=== PATIENT | male | born 1955 | race Caucasian/White ===

== ENCOUNTER 2018-01-12 17:17 | Inpatient (IN) | payer BC ==
[~2018-01-12] VITALS: Ht 170.2 cm; Wt 109.8 kg
--- NOTE | ~2018-01-12 | MORECARE ---
CASE MANAGEMENT DISCHARGE SUMMARY PATIENT: ELMER SOW UNIT: [id number] ADM DATE: 01/12/18 AGE: 62 : 51 SEX: M ROOM/BED: D.2103 AUTHOR: VERONICA MENDEZ PHYSICIAN: REFERRING PHYSICIAN: SETH MCKEON MD DATE OF SERVICE: 01/17/18 Discharge Plan Patient Name: ELMER SOW Facility: [facility]:[place] : 1955 Planned Disposition: Home Anticipated Discharge Date: 01/17/18 Discharge Date: Expected LOS: 5 Initial Reviewer: [email or web address] Initial Review Date: 01/17/2018 Generated: 01/17/18 5:36 pm DCPIA - Discharge Planning Initial Assessment Updated by [email or web address]: Mauricio Yousif on 01/17/18 4:34 pm * Is the patient Alert and Oriented? Yes * How many steps to enter\exit or inside your home? * PCP DR. ZAMAN * Pharmacy [facility] * Preadmission Environment Home with Family * ADLs Independent * Equipment None * Other Equipment NO MEDICAL EQUIPMENT PROVIDER PREFERENCE * List name and contact numbers for known caregivers / representatives who currently or will assist patient after discharge: ENRIQUE MORENO, SPOUSE, * Verbal permission to speak to the caregivers and representatives has been obtained from the patient. Yes * Community resources currently utilized None * Please name any agencies selected above. NONE * Additional services required to return to the preadmission environment? No * Can the patient safely return to the preadmission environment? Yes * Has this patient been hospitalized within the prior 30 days at any hospital? No Last DP export: 01/17/18 3:21 Patient Name: ELMER SOW Page [id number] at 1636 All edits/amendments must be made on the electronic document DICTATION DATE: 01/17/18 163 TALENT SOLUTIONS MANAGER: SONNY 01/17/18 163 RPT#: [id number] DC DATE: STATUS: ADM IN [facility] [address] [place] [address] END OF REPORT
--- NOTE | ~2018-01-12 | MORECARE ---
CASE MANAGEMENT DISCHARGE SUMMARY PATIENT: ELMER SOW UNIT: [id number] ADM DATE: 01/12/18 AGE: 62 : 53 SEX: M ROOM/BED: D.2103 AUTHOR: VERONICA MENDEZ PHYSICIAN: REFERRING PHYSICIAN: SETH MCKEON MD DATE OF SERVICE: 01/17/18 Discharge Plan Patient Name: ELMER SOW [facility] [facility] 1955 Planned Disposition: Home Anticipated Discharge Date: 01/17/18 Discharge Date: Expected LOS: 5 Initial Reviewer: [email or web address] Initial Review Date: 01/17/2018 Generated: 01/17/18 5:21 pm Patient Name: ELMER SOW Page [id number] at 1621 All edits/amendments must be made on the electronic document DICTATION DATE: 01/17/181619 LINE TESTER: SONNY 01/17/18 162 RPT#: [id number] DC DATE: STATUS: ADM IN [facility] [address] [place] [address] END OF REPORT
--- NOTE | ~2018-01-12 | MORECARE ---
CASE MANAGEMENT DISCHARGE SUMMARY PATIENT: ELMER SOW UNIT: [id number] ADM DATE: 01/12/18 AGE: 62 : 51 SEX: M ROOM/BED: D.2103 AUTHOR: ANDREA,DOC PHYSICIAN: REFERRING PHYSICIAN: SETH MCKEON MD DATE OF SERVICE: 01/17/18 Discharge Plan Patient Name: ELMER SOW Facility: [facility]:[place] : 1955 Planned Disposition: Home Anticipated Discharge Date: 01/17/18 Discharge Date: 01/17/2018 Expected LOS: 5 Initial Reviewer: [email or web address] Initial Review Date: 01/17/2018 Generated: 01/17/18 5:44 pm Comments DCP- Discharge Planning Updated by [email or web address]: Mauricio Yousif on 01/17/18 3:[address] Patient Name: ELMER SOW Admission Status: ER Accout number: [id number] Admission Date: 01-12-2018 : 1955 Admission Diagnosis:OTHER SPECIFIED SOFT TISSUE DISORDERS Attending: SETH MCKEON Current LOS: 5 Anticipated DC Date: 01-17-2018 Planned Disposition: Home Primary Insurance: [employer] OUT OF STATE Discharge Planning Comments: * Is the patient Alert and Oriented? Yes 0 * How many steps to enter\\exit or inside your home? 6 0 * PCP DR. ZAMAN 0 * Pharmacy [facility] 0 * Preadmission Environment Home with Family 0 * ADLs Independent 0 * Equipment None 0 * Other Equipment NO MEDICAL EQUIPMENT PROVIDER PREFERENCE 0 * List name and contact numbers for known caregivers / representatives who currently or will assist patient after discharge: ENRIQUE MORENO, SPOUSE, 0 * Verbal permission to speak to the caregivers and representatives has been obtained from the patient. Yes 0 * Community resources currently utilized None 0 * Please name any agencies selected above. NONE 0 * Additional services required to return to the preadmission environment? No 0 * Can the patient safely return to the preadmission environment? Yes 0 * Has this patient been hospitalized within the prior 30 days at any hospital? No 0 CM MET WITH PT AND SPOUSE IN ROOM TO DISCUSS DISCHARGE PLANNING AND NEEDS. ELMER SOW provided verbal consent to discuss current and ongoing needs with/in the presence of: ENRIQUE, SPOUSE. PT REPORTS LIVING AT HOME INDEPENDENTLY WITH SPOUSE. PT HAS NO MEDICAL EQUIPMENT AND NO OUTSIDE SERVICES ASSISTING IN THE HOME. CM DISCUSSED AVAILABILITY OF HOME HEALTH, REHAB SERVICES AND MEDICAL EQUIPMENT. PT DENIES DISCHARGE NEEDS, REPORTS HIS WILL PICK HIM UP FOR DISCHARGE HOME TODAY. 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 WELDER GAS NURSE NOTIFIED. Sec Accountant: Mauricio Yousif DCPIA - Discharge Planning Initial Assessment Updated by [email or web address]: Mauricio Yousif on 01/17/18 4:34 pm * Is the patient Alert and Oriented? Yes * How many steps to enter\\exit or inside your home? * PCP DR. ZAMAN * Pharmacy [facility] * Preadmission Environment Home with Family * ADLs Independent * Equipment None * Other Equipment NO MEDICAL EQUIPMENT PROVIDER PREFERENCE * List name and contact numbers for known caregivers / representatives who currently or will assist patient after discharge: ENRIQUE MORENO, SPOUSE, * Verbal permission to speak to the caregivers and representatives has been obtained from the patient. Yes * Community resources currently utilized None * Please name any agencies selected above. NONE * Additional services required to return to the preadmission environment? No * Can the patient safely return to the preadmission environment? Yes * Has this patient been hospitalized within the prior 30 days at any hospital? No Last DP export: 01/17/18 3:36 Patient Name: ELMER SOW Page [id number] at 1644 All edits/amendments must be made on the electronic document DICTATION DATE: 01/17/181642 PERISHABLE FREIGHT INSPECTOR: SONNY 01/17/181642 RPT#: [id number] PA DATE:01/17/18 STATUS: DIS IN [facility] [address] [place] [address] END OF REPORT
[2018-01-12 18:12] LABS: BASOPHILS 0.2 % (0-2); EOSINOPHILS 2.5 % (0-7); HEMATOCRIT 42.7 % (42.0-54.0); HEMOGLOBIN 14.3 g/dL (13.5-17.5); IMMATURE GRANULOCYTES 0.6 % (0-5); LYMPHOCYTES 22.8 % (15-50); MCH 30.8 pg (26.0-34.0); MCHC 33.5 g/dL (31.0-37.0); MCV 91.8 fL (80.0-100.0); MEAN PLATELET VOLUME 9.4 fL (7.4-10.4); NEUTROPHILS 63.9 % (40-80); PLATELET COUNT 323 10x3/uL (130-400); RBC 4.65 10x6/uL (4.20-6.10); RDW 12.8 % (11.5-14.5); WBC 8.8 10x3/uL (4.8-10.8)
[2018-01-12 18:43] LABS: ALBUMIN 3.1 g/dL (3.4-5.0); ANION GAP 9.8 mmol/L (8-16); BILIRUBIN - TOTAL 0.44 mg/dL (0.2-1.3); CALCIUM 8.8 mg/dL (8.5-10.1); CARBON DIOXIDE 31.1 mmol/L (21.0-32.0); CREATININE - SERUM 1.4 mg/dL (0.6-1.3); POTASSIUM - SERUM 3.9 mmol/L (3.5-5.1); PROTEIN - SERUM 7.5 g/dL (6.4-8.2)
[2018-01-12 20:00] VITALS: BP 130/79
[2018-01-13 00:46] VITALS: BP 119/72
[2018-01-13 04:00] VITALS: BP 109/56
[2018-01-13 06:14] LABS: BASOPHILS 0.3 % (0-2); EOSINOPHILS 2.3 % (0-7); HEMATOCRIT 41.2 % (42.0-54.0); HEMOGLOBIN 13.5 g/dL (13.5-17.5); IMMATURE GRANULOCYTES 0.6 % (0-5); LYMPHOCYTES 23.4 % (15-50); MCH 30.3 pg (26.0-34.0); MCHC 32.8 g/dL (31.0-37.0); MCV 92.6 fL (80.0-100.0); MEAN PLATELET VOLUME 9.7 fL (7.4-10.4); MONOCYTES 9.8 % (2-11); NEUTROPHILS 63.6 % (40-80); PLATELET COUNT 306 10x3/uL (130-400); RBC 4.45 10x6/uL (4.20-6.10); RDW 12.9 % (11.5-14.5); WBC 8.9 10x3/uL (4.8-10.8)
[2018-01-13 06:34] LABS: ANION GAP 11.1 mmol/L (8-16); CALCIUM 8.2 mg/dL (8.5-10.1); CARBON DIOXIDE 27.8 mmol/L (21.0-32.0); CREATININE - SERUM 1.2 mg/dL (0.6-1.3); POTASSIUM - SERUM 3.9 mmol/L (3.5-5.1)
[2018-01-13 08:48] VITALS: BP 145/79
[2018-01-13 12:21] VITALS: BP 137/78
[2018-01-13 16:56] VITALS: BP 142/70
[2018-01-13 23:12] VITALS: BP 100/56
[2018-01-14 02:38] VITALS: BP 105/57
[2018-01-14 04:48] LABS: BASOPHILS 0.3 % (0-2); EOSINOPHILS 2.5 % (0-7); HEMATOCRIT 40.2 % (42.0-54.0); HEMOGLOBIN 13.2 g/dL (13.5-17.5); IMMATURE GRANULOCYTES 0.3 % (0-5); MCH 30.3 pg (26.0-34.0); MCHC 32.8 g/dL (31.0-37.0); MCV 92.4 fL (80.0-100.0); MEAN PLATELET VOLUME 9.5 fL (7.4-10.4); MONOCYTES 7.6 % (2-11); NEUTROPHILS 67.3 % (40-80); PLATELET COUNT 257 10x3/uL (130-400); RBC 4.35 10x6/uL (4.20-6.10); RDW 12.8 % (11.5-14.5); WBC 10.1 10x3/uL (4.8-10.8)
[2018-01-14 05:01] LABS: ANION GAP 13.1 mmol/L (8-16); CALCIUM 8.4 mg/dL (8.5-10.1); CARBON DIOXIDE 24.1 mmol/L (21.0-32.0); CHOL - HDL RATIO 3.8 ratio (2.3-4.9); CREATININE - SERUM 1.2 mg/dL (0.6-1.3); LDL-HDL RATIO 2.4 ratio (1.5-3.5); POTASSIUM - SERUM 4.2 mmol/L (3.5-5.1)
[2018-01-14 06:07] VITALS: BP 113/65
[2018-01-14 08:00] VITALS: BP 118/65
[2018-01-14 20:00] VITALS: BP 111/64
[2018-01-15] VITALS: BP 124/75
[2018-01-15 04:00] VITALS: BP 136/81
[2018-01-15 05:23] LABS: BASOPHILS 0.3 % (0-2); HEMATOCRIT 39.9 % (42.0-54.0); HEMOGLOBIN 13.1 g/dL (13.5-17.5); IMMATURE GRANULOCYTES 0.3 % (0-5); LYMPHOCYTES 21.6 % (15-50); MCH 30.2 pg (26.0-34.0); MCHC 32.8 g/dL (31.0-37.0); MCV 91.9 fL (80.0-100.0); MEAN PLATELET VOLUME 9.8 fL (7.4-10.4); MONOCYTES 8.2 % (2-11); NEUTROPHILS 66.6 % (40-80); PLATELET COUNT 282 10x3/uL (130-400); RBC 4.34 10x6/uL (4.20-6.10); RDW 12.8 % (11.5-14.5); WBC 9.6 10x3/uL (4.8-10.8)
[2018-01-15 05:41] LABS: ANION GAP 10.5 mmol/L (8-16); CALCIUM 8.2 mg/dL (8.5-10.1); CARBON DIOXIDE 26.8 mmol/L (21.0-32.0); CREATININE - SERUM 1.1 mg/dL (0.6-1.3); POTASSIUM - SERUM 4.3 mmol/L (3.5-5.1)
[2018-01-15 08:35] VITALS: BP 119/74
[2018-01-15 10:42] VITALS: BP 132/64
[2018-01-15 14:56] VITALS: BP 126/69
[2018-01-15 20:00] VITALS: BP 139/77
[2018-01-16] VITALS: BP 125/70
[2018-01-16 04:00] VITALS: BP 141/75
[2018-01-16 05:31] LABS: BASOPHILS 0.4 % (0-2); EOSINOPHILS 3.7 % (0-7); HEMATOCRIT 39.9 % (42.0-54.0); HEMOGLOBIN 13.3 g/dL (13.5-17.5); IMMATURE GRANULOCYTES 0.3 % (0-5); MCH 30.3 pg (26.0-34.0); MCHC 33.3 g/dL (31.0-37.0); MCV 90.9 fL (80.0-100.0); MEAN PLATELET VOLUME 9.7 fL (7.4-10.4); NEUTROPHILS 65.6 % (40-80); PLATELET COUNT 260 10x3/uL (130-400); RBC 4.39 10x6/uL (4.20-6.10); RDW 12.7 % (11.5-14.5); WBC 9.7 10x3/uL (4.8-10.8)
[2018-01-16 06:05] LABS: ANION GAP 14.1 mmol/L (8-16); CALCIUM 8.6 mg/dL (8.5-10.1); CARBON DIOXIDE 23.1 mmol/L (21.0-32.0); CREATININE - SERUM 1.1 mg/dL (0.6-1.3); POTASSIUM - SERUM 4.2 mmol/L (3.5-5.1)
[2018-01-16 08:34] VITALS: BP 130/85
[2018-01-16 12:12] VITALS: BP 120/86
[2018-01-16 15:14] VITALS: BP 109/65
[2018-01-16 20:00] VITALS: BP 129/74
[2018-01-17] VITALS: BP 118/69
[2018-01-17 04:00] VITALS: BP 122/72
[2018-01-17 06:32] LABS: BASOPHILS 0.3 % (0-2); EOSINOPHILS 3.5 % (0-7); HEMATOCRIT 41.9 % (42.0-54.0); HEMOGLOBIN 13.7 g/dL (13.5-17.5); IMMATURE GRANULOCYTES 0.3 % (0-5); LYMPHOCYTES 26.2 % (15-50); MCH 30.2 pg (26.0-34.0); MCHC 32.7 g/dL (31.0-37.0); MCV 92.3 fL (80.0-100.0); MEAN PLATELET VOLUME 9.9 fL (7.4-10.4); MONOCYTES 7.7 % (2-11); PLATELET COUNT 290 10x3/uL (130-400); RBC 4.54 10x6/uL (4.20-6.10); RDW 12.9 % (11.5-14.5); WBC 9.2 10x3/uL (4.8-10.8)
[2018-01-17 06:35] LABS: ANION GAP 10.5 mmol/L (8-16); CALCIUM 8.5 mg/dL (8.5-10.1); CARBON DIOXIDE 28.5 mmol/L (21.0-32.0); CREATININE - SERUM 1.2 mg/dL (0.6-1.3)
[2018-01-17 09:54] VITALS: BP 124/73
[2018-01-17 11:39] VITALS: BP 123/62
[2018-01-17 13:32] VITALS: Ht 170.2 cm; Wt 109.8 kg
[2018-01-17] MEDS ORDERED: FLORAJEN3 CAPS460 MG PO (13:37)
[2018-01-17] MEDS ORDERED: VIBRAMYCIN 100100 MG PO (13:37)
[2018-01-17 15:25] VITALS: BP 126/71
[2018-01-17 17:11] LABS: AEROBE ID Final report (())
== END 2018-01-17 16:42 | disposition home or self-care (01) | DRG 603 ==
LOC: D.ER 17:17 → D.M2 21:03
PROVIDERS: Emergency Medicine; Family Medicine; Internal Medicine Nephrology
DX: L03.116 Cellulitis of left lower limb (principal); N17.9 Acute kidney failure, unspecified; M19.90 Unspecified osteoarthritis, unspecified site; I10 Essential (primary) hypertension; B35.3 Tinea pedis; B95.8 Unspecified staphylococcus as the cause of diseases classified elsewhere; B95.62 Methicillin resistant Staphylococcus aureus infection as the cause of diseases classified elsewhere; B95.4 Other streptococcus as the cause of diseases classified elsewhere